=== PATIENT | female | born 1990 | race Caucasian/White ===

== ENCOUNTER 2017-12-07 20:10 | Emergency (ER) | payer OTHER, SELFPAY ==
[2017-12-07 20:15] VITALS: BP 125/86; PULSE 82; RESP 22; TEMP 36.7; O2SAT 100; BMI 32.3
--- NOTE | 2017-12-07 22:29 | ED.PSYCH ---
HPI - Psych General Chief Complaint: Psychiatric Symptoms Stated Complaint: anxiety attack Time Seen by Provider: 12/07/17 22:25 Source: patient and family Mode of arrival: ambulatory Limitations: no limitations History of Present Illness HPI Narrative: 27-year-old nonsmoking female presents with chief complaint of an anxiety attack that resolved prior to her arrival. She has been dealing with anxiety for many years and is under the care of a mental health provider in [place]. 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 Today she started thinking about work and had a full-blown anxiety attack, which is not something that is new to her. Her and her have a plan of action for when she becomes anxious which includes at times calling her mother and in severe scenarios presenting to the emergency department. She feels much better since coming here and states she intends to switch jobs as soon as possible. She denies any other stressful aspects of her life. She denies any homicidal or suicidal ideation. She would prefer not to pursue any emergent evaluation and would rather go home, with her family and she will follow up with her providers tomorrow complaint: other Onset (ago): hour(s) Duration: resolved prior to arrival History of same: Yes Relieving factors: therapy Exacerbating factors: other Treatments prior to arrival: none Related Data Home Medications Medication Instructions Recorded Confirmed citalopram 40 mg PO DAILY 12/07/17 12/07/17 Allergies Allergy/AdvReac Type Severity Reaction Status Date / Time benzoyl peroxide Allergy Intermediate Hives Verified 12/07/17 20:23 lactose Allergy Diarrhea Verified 12/07/17 20:24 Review of Systems Review of Systems All systems reviewed & are unremarkable except as noted in HPI and below Constitutional Denies chills, Denies fever(s), Denies lethargy and Denies weakness Eyes Denies change in vision, Denies eye discharge, Denies irritation and Denies loss of vision ENT Ears, Nose, Mouth, and Throat: Denies change in voice, Denies neck pain and Denies sore throat Cardiovascular Denies chest pain, Denies irregular heart rhythm, Denies lightheadedness, Denies palpitations, Denies dyspnea, Denies dyspnea on exertion and Denies orthopnea Respiratory Denies cough, Denies dyspnea, Denies dyspnea on exertion and Denies wheezing Gastrointestinal Gastrointestinal: Denies abdominal pain, Denies change in bowel habits, Denies diarrhea, Denies nausea and Denies vomiting Genitourinary Denies hematuria, Denies flank pain, Denies urinary incontinence and Denies urinary urgency Musculoskeletal Denies neck pain Integumentary/Breasts Denies pruritus, Denies erythema, Denies rash and Denies wounds Neurologic Denies confusion, Denies loss of vision and Denies weakness Psychiatric Reports anxiety, Denies confusion, Denies depression, Denies homicidal ideation and Denies suicidal ideation Endocrine Denies palpitations Hematologic/Lymphatic Denies easy bruising Allergic/Immunologic Denies wheezing [facility] Social History Smoking Status: Never smoker Exam Narrative Exam Narrative: GENERAL: This is a well-nourished, well-developed patient, in mild distress. HEAD: Atraumatic. Normocephalic. No temporal or scalp tenderness. EYES: Pupils equal round and reactive. Extraocular motions intact. No scleral icterus. No injection or drainage. ENT: Nose without bleeding, purulent drainage or septal hematoma. Throat without erythema, tonsillar hypertrophy or exudate. Uvula midline. Airway patent. NECK: Trachea midline. No JVD or lymphadenopathy. Supple, nontender, no meningeal signs. CARDIOVASCULAR: Regular rate and rhythm without murmurs, gallops, or rubs. RESPIRATORY: Clear to auscultation. Breath sounds equal bilaterally. No wheezes, rales, or rhonchi. GASTROINTESTINAL: Abdomen soft, non-tender, nondistended. No hepato-splenomegaly, or palpable masses. No guarding. EXTREMITIES: No clubbing, cyanosis, or edema. No joint tenderness, effusion, or edema noted. BACK: Nontender without deformity or crepitance. No flank tenderness. NEURO: AOx3. SKIN: No rash or erythema. Initial Vital Signs Initial Vital Signs: Vital Signs Temperature 98.1 F 12/07/17 20:15 Pulse Rate 82 12/07/17 20:15 Respiratory Rate 22 12/07/17 20:15 Blood Pressure 125/86 12/07/17 20:15 Pulse Oximetry 100 12/07/17 20:15 Course Orders Ordered: Discontinued Medications Lorazepam (Ativan) 1 mg PO NOW ONE Stop: 12/07/17 22:49 Last Admin: 12/07/17 23:03 Dose: 1 mg Vital Signs - 8 hr 12/07/17 20:15 12/07/17 22:59 12/07/17 23:08 Temperature 98.1 F 97.3 F L Pulse Rate 82 73 72 Respiratory Rate 22 16 16 Blood Pressure 125/86 110/76 Blood Pressure [Right Arm] 115/75 Pulse Oximetry 100 100 100 MDM - Psych MDM Narrative Medical decision making narrative: Patient with extensive psychiatric history presents with a anxiety attack. It had resolved prior to my evaluation. She is under the care of a therapist and has good support. She prefers to go home and this seems reasonable. She has been given return precautions Discharge Plan Departure Patient Disposition: Home Clinical Impression: Acute anxiety Discharge Date/Time: 12/07/17 23:11 Interventions: ED Discharge Assessment Last Done: 12/07/17 23:08 Instructions: DI for Anxiety -- Adult Activity Restrictions/Additional Instructions: *You have been diagnosed with [ acute anxiety episode ] *What to do: *Take medications as directed *Follow up with your mental health provider in 2-3 days, call for an appointment. Let them know you were seen in the Emergency Department and that we ask that you be seen in follow up *Return to ER if you should have any new, worsening or concerning symptoms * Please consider texting harshad to [phone] if you want to engage in an anonymous attacks with a mental health provider, additionally direct your Internet browser to [employer] for an anonymous chat Prescriptions: No Action citalopram 40 mg Tablet 40 mg PO DAILY RF: 0 [facility]errals: [facility] [Outside] Stand Alone Forms: Work/School Restrictions
[2017-12-07 22:59] VITALS: BP 115/75; PULSE 73; RESP 16; O2SAT 100
[2017-12-07] MEDS: LORazepam 0.5 MG TABLET 1 MG PO (23:03)
[2017-12-07 23:08] VITALS: BP 110/76; PULSE 72; RESP 16; TEMP 36.3; O2SAT 100
--- NOTE | 2017-12-08 04:14 | ED_ITS ---
HPI - Psych General Chief Complaint: Psychiatric Symptoms Stated Complaint: anxiety attack Time Seen by Provider: 12/07/17 22:25 Source: patient and family Mode of arrival: ambulatory Limitations: no limitations History of Present Illness HPI Narrative: 27-year-old nonsmoking female presents with chief complaint of an anxiety attack that resolved prior to her arrival. She has been dealing with anxiety for many years and is under the care of a mental health provider in [place]. 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 Today she started thinking about work and had a full-blown anxiety attack, which is not something that is new to her. Her and her have a plan of action for when she becomes anxious which includes at times calling her mother and in severe scenarios presenting to the emergency department. She feels much better since coming here and states she intends to switch jobs as soon as possible. She denies any other stressful aspects of her life. She denies any homicidal or suicidal ideation. She would prefer not to pursue any emergent evaluation and would rather go home, with her family and she will follow up with her providers tomorrow complaint: other Onset (ago): hour(s) Duration: resolved prior to arrival History of same: Yes Relieving factors: therapy Exacerbating factors: other Treatments prior to arrival: none Related Data Home Medications Medication Instructions Recorded Confirmed citalopram 40 mg PO DAILY 12/07/17 12/07/17 Allergies Allergy/AdvReac Type Severity Reaction Status Date / Time benzoyl peroxide Allergy Intermediate Hives Verified 12/07/17 20:23 lactose Allergy Diarrhea Verified 12/07/17 20:24 Review of Systems Review of Systems All systems reviewed & are unremarkable except as noted in HPI and below Constitutional Denies chills, Denies fever(s), Denies lethargy and Denies weakness Eyes Denies change in vision, Denies eye discharge, Denies irritation and Denies loss of vision ENT Ears, Nose, Mouth, and Throat: Denies change in voice, Denies neck pain and Denies sore throat Cardiovascular Denies chest pain, Denies irregular heart rhythm, Denies lightheadedness, Denies palpitations, Denies dyspnea, Denies dyspnea on exertion and Denies orthopnea Respiratory Denies cough, Denies dyspnea, Denies dyspnea on exertion and Denies wheezing Gastrointestinal Gastrointestinal: Denies abdominal pain, Denies change in bowel habits, Denies diarrhea, Denies nausea and Denies vomiting Genitourinary Denies hematuria, Denies flank pain, Denies urinary incontinence and Denies urinary urgency Musculoskeletal Denies neck pain Integumentary/Breasts Denies pruritus, Denies erythema, Denies rash and Denies wounds Neurologic Denies confusion, Denies loss of vision and Denies weakness Psychiatric Reports anxiety, Denies confusion, Denies depression, Denies homicidal ideation and Denies suicidal ideation Endocrine Denies palpitations Hematologic/Lymphatic Denies easy bruising Allergic/Immunologic Denies wheezing [facility] Social History Smoking Status: Never smoker Exam Narrative Exam Narrative: GENERAL: This is a well-nourished, well-developed patient, in mild distress. HEAD: Atraumatic. Normocephalic. No temporal or scalp tenderness. EYES: Pupils equal round and reactive. Extraocular motions intact. No scleral icterus. No injection or drainage. ENT: Nose without bleeding, purulent drainage or septal hematoma. Throat without erythema, tonsillar hypertrophy or exudate. Uvula midline. Airway patent. NECK: Trachea midline. No JVD or lymphadenopathy. Supple, nontender, no meningeal signs. CARDIOVASCULAR: Regular rate and rhythm without murmurs, gallops, or rubs. RESPIRATORY: Clear to auscultation. Breath sounds equal bilaterally. No wheezes , rales, or rhonchi. GASTROINTESTINAL: Abdomen soft, non-tender, nondistended. No hepato-splenomegaly , or palpable masses. No guarding. EXTREMITIES: No clubbing, cyanosis, or edema. No joint tenderness, effusion, or edema noted. BACK: Nontender without deformity or crepitance. No flank tenderness. NEURO: AOx3. SKIN: No rash or erythema. Initial Vital Signs Initial Vital Signs: Vital Signs Temperature 98.1 F 12/07/17 20:15 Pulse Rate 82 12/07/17 20:15 Respiratory Rate 22 12/07/17 20:15 Blood Pressure 125/86 12/07/17 20:15 Pulse Oximetry 100 12/07/17 20:15 Course Orders Ordered: Discontinued Medications Lorazepam (Ativan) 1 mg PO NOW ONE Stop: 12/07/17 22:49 Last Admin: 12/07/17 23:03 Dose: 1 mg Vital Signs - 8 hr 12/07/17 20:15 12/07/17 22:59 12/07/17 23:08 Temperature 98.1 F 97.3 F L Pulse Rate 82 73 72 Respiratory Rate 22 16 16 Blood Pressure 125/86 110/76 Blood Pressure [Right Arm] 115/75 Pulse Oximetry 100 100 100 MDM - Psych MDM Narrative Medical decision making narrative: Patient with extensive psychiatric history presents with a anxiety attack. It had resolved prior to my evaluation. She is under the care of a therapist and has good support. She prefers to go home and this seems reasonable. She has been given return precautions Discharge Plan Departure Patient Disposition: Home Clinical Impression: Acute anxiety Discharge Date/Time: 12/07/17 23:11 Interventions: ED Discharge Assessment Last Done: 12/07/17 23:08 Instructions: DI for Anxiety -- Adult Activity Restrictions/Additional Instructions: *You have been diagnosed with [ acute anxiety episode ] *What to do: *Take medications as directed *Follow up with your mental health provider in 2-3 days, call for an appointment. Let them know you were seen in the Emergency Department and that we ask that you be seen in follow up *Return to ER if you should have any new, worsening or concerning symptoms * Please consider texting harshad to [phone] if you want to engage in an anonymous attacks with a mental health provider, additionally direct your Internet browser to [email or web address] for an anonymous chat Prescriptions: No Action citalopram 40 mg Tablet 40 mg PO DAILY RF: 0 Referrals: [facility] [Outside] Stand Alone Forms: Work/School Restrictions
== END 2017-12-07 23:11 | disposition home or self-care (01) ==
PROVIDERS: Emergency Provider Emergency Medicine
DX: F41.9 Anxiety disorder, unspecified (principal)
CPT/HCPCS: 99282; 99283

== ENCOUNTER → 2018-09-17 13:30 | Outpatient (CLI) | payer OTHER, SELFPAY | PROVIDERS: Visit Provider Physician Assistant | DX: L08.9 Local infection of the skin and subcutaneous tissue, unspecified (principal) | CPT/HCPCS: 87070; 87077; 87147; 87186; 87205 ==

== ENCOUNTER 2018-12-09 16:17 | Emergency (ER) | payer OTHER, SELFPAY ==
[2018-12-09 16:20] VITALS: BP 121/82; PULSE 92; RESP 18; TEMP 37.1; O2SAT 100
[2018-12-09 18:17] VITALS: BP 120/77; PULSE 85; RESP 17; O2SAT 100
[2018-12-09] MEDS: TET,DIPH,PERTUSS(ACELL),VAC/PF 0.5 ML SYRINGE IM (18:34)
[2018-12-09 19:10] VITALS: BP 120/76; PULSE 74; RESP 16; O2SAT 100
--- NOTE | 2018-12-09 20:44 | ED_ITS ---
HPI - Wound/Laceration <SHAYY Samuel - Last Filed: 12/09/18 20:49> General Chief Complaint: Wound/Laceration Stated Complaint: bitten at work by a child Time Seen by Provider: 12/09/18 17:45 Source: patient Mode of arrival: Ambulatory Limitations: no limitations History of Present Illness HPI narrative: The patient is a 28-year-old female nonsmoker who presents with a chief complaint or of a human bite to the right side of her chest and right forearm. She does not know when her last tetanus was. The bite was at work by child. She states she is concerned about infection. She denies any fevers chest pain shortness of breath nausea vomiting or diarrhea. Related Data Home Medications Medication Instructions Recorded Confirmed sertraline 25 mg tablet 25 mg PO DAILY 09/17/18 09/17/18 Previous Rx's Medication Instructions Recorded amoxicillin-pot clavulanate 1 tab PO BID #20 tab 12/09/18 Allergies Allergy/AdvReac Type Severity Reaction Status Date / Time benzoyl peroxide Allergy Intermediate Hives Verified 09/17/18 13:17 lactose Allergy Diarrhea Verified 09/17/18 13:17 Review of Systems <SHAYY Samuel - Last Filed: 12/09/18 20:49> Review of Systems Narrative: GENERAL: Denies chills, fatigue, malaise, fever, sweats. HEENT: Denies sinus pain, ear pain, sore throat, difficulty swallowing, dizziness. RESPIRATORY: Denies dyspnea, cough, wheezing, hemoptysis, sputum. CARDIOVASCULAR: Denies chest pain, palpitations, orthopnea, edema, GASTROINTESTINAL: Denies nausea, vomiting, abdominal pain, diarrhea, constipation, melena. : Denies dysuria, frequency, incontinence, hematuria, urinary retention. MUSCULOSKELETAL: denies weakness, joint pain, or bony pain SKIN: HPI NEUROLOGIC: Denies weakness, headache, numbness, change in speech, confusion, seizures, incoordination. PSYCHIATRIC: No concerning psychosocial issues. 12 point review of systems is negative except for those stated above Patient History <SHAYY Samuel - Last Filed: 12/09/18 20:49> Social History Smoking Status: Never smoker alcohol intake frequency: holidays/special occasions only Substance Use Type: does not use Exam <SHAYY Samuel - Last Filed: 12/09/18 20:49> Narrative Exam Narrative: GENERAL: This is a well-nourished, well-developed patient, in no acute distress HEAD: Atraumatic. Normocephalic. No temporal or scalp tenderness. EYES: Pupils equal round and reactive. Extraocular motions intact. No scleral icterus. No injection or drainage. ENT: Nose without bleeding, purulent drainage or septal hematoma. Throat without erythema, tonsillar hypertrophy or exudate. Uvula midline. Airway patent. NECK: Trachea midline. No JVD or lymphadenopathy. Supple, nontender, no meningeal signs. CARDIOVASCULAR: Regular rate and rhythm RESPIRATORY: No cough. No increased respiratory effort. No accessory muscle use. EXTREMITIES: See skin exam. BACK: Nontender without deformity or crepitance. No flank tenderness. NEURO: AOx3. SKIN: Bite amber to right breast, medial upper aspect. Approximately 4 x 2 cm. Through dermis, causing abrasion. Bite amber to right forearm, not through dermis. Initial Vital Signs Initial Vital Signs: Vital Signs Temperature 98.8 F 12/09/18 16:20 Pulse Rate 92 H 12/09/18 16:20 Respiratory Rate 18 12/09/18 16:20 Blood Pressure 121/82 12/09/18 16:20 Pulse Oximetry 100 12/09/18 16:20 <Ifeoma Marques DO - Last Filed: 12/10/18 02:04> Initial Vital Signs Initial Vital Signs: Vital Signs Temperature 98.8 F 12/09/18 16:20 Pulse Rate 92 H 12/09/18 16:20 Respiratory Rate 18 12/09/18 16:20 Blood Pressure 121/82 12/09/18 16:20 Pulse Oximetry 100 12/09/18 16:20 Course <SHAYY Samuel - Last Filed: 12/09/18 20:49> Orders Ordered: Discontinued Medications Diphtheria/Tetanus/Acell Pertussis (Adacel) 0.5 ml IM .ONCE ONE Stop: 12/09/18 17:56 Last Admin: 12/09/18 18:34 Dose: 0.5 ml Documented by: ALEXEY Vital Signs Vital signs: Vital Signs - 8 hr 12/09/18 18:17 12/09/18 19:10 Pulse Rate 85 74 Respiratory Rate 17 16 Blood Pressure 120/76 Blood Pressure [Left Arm] 120/77 Pulse Oximetry 100 100 <Ifeoma Marques DO - Last Filed: 12/10/18 02:04> Orders Ordered: Discontinued Medications Diphtheria/Tetanus/Acell Pertussis (Adacel) 0.5 ml IM .ONCE ONE Stop: 12/09/18 17:56 Last Admin: 12/09/18 18:34 Dose: 0.5 ml Documented by: ALEXEY Vital Signs Vital signs: Vital Signs - 8 hr 12/09/18 18:17 12/09/18 19:10 Pulse Rate 85 74 Respiratory Rate 17 16 Blood Pressure 120/76 Blood Pressure [Left Arm] 120/77 Pulse Oximetry 100 100 MDM - Wound/Laceration <TERRIE Samuel-BC - Last Filed: 12/09/18 20:49> MDM Narrative Medical decision making narrative: The patient is a 28-year-old female who presents with a chief complaint of a human bite sustained at work. Her tetanus was updated in the emergency department the wound was cleansed. I did start her on Augmentin given the depth of 1 of her bites. I discussed at length the importance of follow-up with primary care provider, the importance of monitoring for signs of infection such as fevers, fever back spreading redness or purulence etc patient has been of no questions and state understanding of return precautions as well as follow-up care. Discharge Plan Departure Patient Disposition: Home Clinical Impression: Human bite Qualifiers: Encounter type: initial encounter Qualified Code(s): W50.3XXA - Accidental bite by another person, initial encounter Discharge Date/Time: 12/09/18 19:10 Instructions: DI for a Human Bite Activity Restrictions/Additional Instructions: I have sent a prescription of an antibiotic to [facility] in [place]. Today we updated your tetanus. Please follow up with primary care provider. Please monitor your wounds for signs of worsening infection such as redness pus swelling and fever. Please be evaluated if these occur. Prescriptions: New amoxicillin-pot clavulanate 875-125 mg tablet 1 tab PO BID Qty: 20 RF: 0 No Action sertraline [Zoloft] 25 mg tablet 25 mg PO DAILY RF: 0 Referrals: [facility] [Provider Group]
== END 2018-12-09 19:10 | disposition home or self-care (01) ==
PROVIDERS: Emergency Provider Nurse Practitioner Family
DX: S21.159A Open bite of unspecified front wall of thorax without penetration into thoracic cavity, initial encounter (principal); W50.3XXA Accidental bite by another person, initial encounter; Z23 Encounter for immunization; Y99.0 Civilian activity done for income or pay
CPT/HCPCS: 90471; 99283; 90715